=== PATIENT | male | born 1975 ===

== ENCOUNTER 2018-02-28 19:02 | Outpatient (REF) | payer SELFPAY ==
[2018-02-28 19:44] LABS: Anion Gap 8.5 mmol/L (3-11); BUN 16 mg/dL (7-18); CO2 27.5 mmol/L (21.0-32.0); CREATININE 0.89 mg/dL (0.70-1.30); Calcium 9.3 mg/dL (8.5-10.1); Chloride 105 mmol/L (98-107); Cholesterol 209 mg/dL (50-200); Glucose 93 mg/dL (70-100); HDL Cholesterol 40 mg/dL (40-60); LDL CHOLESTEROL 140 mg/dL (<100); Potassium 4.2 mmol/L (3.5-5.1); Sodium 141 mmol/L (136-145); Triglyceride 193 mg/dL (30-150)
== END 2018-02-28 19:22 ==
LOC: NCHCN 19:02
PROVIDERS: PCP Physician Assistant Medical; Visit Provider Physician Assistant Medical
DX: Z00.00 Encounter for general adult medical examination without abnormal findings (principal); Z13.228 Encounter for screening for other metabolic disorders; Z13.220 Encounter for screening for lipoid disorders
CPT/HCPCS: 80048; 80061; 83721

== ENCOUNTER 2022-07-27 17:18 | Outpatient (REF) | payer BC, SELFPAY ==
[2022-07-27 21:16] LABS: Abs Immature Grans 0.02 10^3/uL (0.0-0.06); Absolute Basophil Count 0.05 10^3/uL (0.0-0.2); Absolute Eosinophil Count 0.05 10^3/uL (0.0-0.7); Absolute Lymphocyte Count 1.89 10^3/uL (1.2-3.4); Absolute Neutrophil Count 4.88 10^3/uL (1.2-6.7); Basophils % 0.7; Eosinophils % 0.7; HCT 43.4 % (40.0-50.0); HGB 14.9 g/dL (13.5-17.5); Immature Grans % 0.3; Lymphocytes % 25.2; MCH 31.7 pg (27.0-33.0); MCHC 34.3 % (32.0-36.0); MCV 92 fL (80-95); MPV 10.6 fL (8.0-11.0); Neutrophils % 65.1; Platelet Count 260 10^3/uL (130-400); RDW 12.7 % (11.8-14.1); RDW-SD 43.3 fL; WBC 7.49 10^3/uL (4.4-10.8)
[2022-07-27 21:50] LABS: ALT 36 U/L (16-63); AST 23 U/L (15-37); Albumin 4.3 g/dL (3.4-5.0); Alkaline Phosphatase 78 U/L (46-116); Anion Gap 7.7 mmol/L (3-11); BUN 14 mg/dL (7-18); Bilirubin, Total 0.5 mg/dL (0.2-1.0); CO2 28.3 mmol/L (21.0-32.0); CREATININE 0.9 mg/dL (0.70-1.30); Calcium 9.6 mg/dL (8.5-10.1); Calculated LDL 142 mg/dL (<100); Chloride 104 mmol/L (98-107); Cholesterol 232 mg/dL (<200); Estimated GFR 105.35 (mL/min/1.73m2); Glucose 97 mg/dL (74-106); HDL Cholesterol 46 mg/dL (40-60); Potassium 3.9 mmol/L (3.5-5.1); Sodium 140 mmol/L (136-145); Total Protein 7.7 g/dL (6.4-8.2); Triglyceride 220 mg/dL (<150)
== END 2022-07-27 17:19 | disposition home or self-care (01) ==
LOC: NCHCN 17:18
PROVIDERS: PCP Physician Assistant Medical; Visit Provider Physician Assistant
DX: Z00.00 Encounter for general adult medical examination without abnormal findings (principal); R00.2 Palpitations; R42 Dizziness and giddiness; E78.5 Hyperlipidemia, unspecified
CPT/HCPCS: 80053; 80061; 84443; 85025